=== PATIENT | female | born 1985 | race Two or more races ===

== ENCOUNTER 2024-12-14 15:21 | Emergency (ER) | payer OTHER ==
[~2024-12-14] VITALS: Ht 165.1 cm; Wt 110.0 kg
[2024-12-14 15:33] VITALS: TEMP 98.8
[2024-12-14] MEDS ORDERED: 0.9% SODIUM CHLORIDE 10 ML SYRINGE IVP PRN (16:00)
[2024-12-14 16:27] LABS: PLATELET COUNT (AUTO) 290 K/uL (150-450); RED BLOOD CELL COUNT(AUTO) 4.59 MIL/uL (4.00-5.20); RED CELL DISTRIBUTION WIDTH 13.6 % (11.5-14.5); WHITE BLOOD COUNT (AUTO) 7.0 K/uL (4.5-11.0)
[2024-12-14 16:37] LABS: CALCIUM, TOTAL 9.0 mg/dL (8.8-10.5); CREATININE 0.59 mg/dL (0.60-1.30); GLOMERULAR FILTR. RATE CALC > 60 mL/min (>60); GLUCOSE,RANDOM 84 mg/dL (70-110); SODIUM SERUM 139 mmol/L (136-145); UREA NITROGEN, BLOOD 8 mg/dL (7-18)
[2024-12-14 16:58] LABS: LACTIC ACID 1.6 mmol/L (0.4-2.0)
[2024-12-14] MEDS: CefTRIAXone 1 GM/DEXTROSE 50 ML IV ONE (17:28)
[2024-12-14] MEDS: SODIUM CHLORIDE 0.9% 3,300 ML IV ONE (17:28)
[2024-12-14] MEDS: VANCOMYCIN HCL 1.5 GM in DEXTROSE 5%-WATER 250 ML IV ONE (18:01)
[2024-12-14 19:49] VITALS: BP 128/75; PULSE 84; RESP 18; O2SAT 100
[2024-12-14 20:16] LABS: APPEARANCE,URINE HAZY (CLEAR); GLUCOSE, URINE (UA) NEGATIVE (NEGATIVE); LEUKOCYTE ESTERASE ,URINE MODERATE (NEGATIVE); NITRATE,URINE NEGATIVE (NEGATIVE); OCCULT BLOOD,URINE MODERATE (NEGATIVE); SPECIFIC GRAVITIY, URINE 1.014 (1.003-1.030)
[2024-12-14 20:40] LABS: SQUAMOUS EPITHELIAL CELL,UR Few /LPF (None Seen)
[2024-12-15] MEDS ORDERED: VANCOMYCIN HCL 1 GM/D5% WATER 200 ML IV SCH
== END 2024-12-14 20:51 | disposition home or self-care (01) ==
LOC: EMS 15:21
DX: L08.9 Local infection of the skin and subcutaneous tissue, unspecified (principal); R07.9 Chest pain, unspecified; Z90.49 Acquired absence of other specified parts of digestive tract; Z79.899 Other long term (current) drug therapy
CPT/HCPCS: 99285; 96365; 71045; 96367; 96361; 96366; 80048; 81001; 83605; 85025; 85610; 87040; 87086; 36415; 93005; 84145; J0696; J7060; J7030; J3373

== ENCOUNTER 2024-12-15 14:30 | Emergency (ER) | payer OTHER ==
[~2024-12-15] VITALS: Ht 165.1 cm; Wt 131.8 kg
[2024-12-15 14:37] VITALS: BP 117/66; PULSE 89; RESP 18; TEMP 98.4; O2SAT 98
[2024-12-15] MEDS: CefTRIAXone 1 GM/DEXTROSE 50 ML IV ONE (16:20)
[2024-12-15] MEDS: VANCOMYCIN HCL 1 GM in DEXTROSE 5%-WATER 250 ML IV ONE (16:53)
== END 2024-12-15 19:26 | disposition home or self-care (01) ==
LOC: EMS 14:30
DX: L03.115 Cellulitis of right lower limb (principal); L89.899 Pressure ulcer of other site, unspecified stage; Z90.49 Acquired absence of other specified parts of digestive tract
CPT/HCPCS: 99284; 96365; 96367; 96366; J0696; J3373; J7060

== ENCOUNTER 2024-12-16 14:46 | Emergency (ER) | payer OTHER ==
[~2024-12-16] VITALS: Ht 165.1 cm; Wt 133.0 kg
[2024-12-16 14:50] VITALS: TEMP 98.6
[2024-12-16] MEDS: CefTRIAXone 1 GM/DEXTROSE 50 ML IV ONE (17:15)
[2024-12-16] MEDS: VANCOMYCIN HCL 1 GM in DEXTROSE 5%-WATER 250 ML IV ONE (17:50)
[2024-12-16 19:10] VITALS: BP 109/68; PULSE 85; RESP 17; O2SAT 98
== END 2024-12-16 20:43 | disposition home or self-care (01) ==
LOC: EMS 14:46
DX: L03.115 Cellulitis of right lower limb (principal); Z90.49 Acquired absence of other specified parts of digestive tract
CPT/HCPCS: 99284; 96365; 96367; 96366; J0696; J3373; J7060